=== PATIENT | male | born 1980 | race African-American/Black ===

== ENCOUNTER 2020-02-03 15:41 | Emergency (ER) | payer OTHER ==
[~2020-02-03] VITALS: Ht 185.4 cm; Wt 81.6 kg
[2020-02-03] MEDS ORDERED: CEFTRIAXONE SODIUM 250 MG/VIAL IM ONE (16:00)
[2020-02-03] MEDS ORDERED: AZITHROMYCIN 500 MG TABLET PO ONE (16:00)
[2020-02-03] MEDS ORDERED: DOXYCYCLINE HYCLATE 100MG CAPSULE PO ONE (16:30)
[2020-02-03 16:55] VITALS: BP 112/78
[2020-02-06 04:11] LABS: HIV SCREEN 4G Non Reactive (Non Reactive)
[2020-02-07 04:07] LABS: NEISSERIA GONORRHOEAE NAA Negative (Negative)
== END 2020-02-03 16:55 | disposition home or self-care (01) ==
LOC: ER 15:41
DX: Z20.2 Contact with and (suspected) exposure to infections with a predominantly sexual mode of transmission (principal)
CPT/HCPCS: 87389; 87491; 87591; 96372; 99283; J0696

== ENCOUNTER 2020-02-10 19:13 | Emergency (ER) | payer OTHER ==
[~2020-02-10] VITALS: Ht 185.4 cm; Wt 78.2 kg
[2020-02-10 19:36] VITALS: BP 108/74
== END 2020-02-10 19:59 | disposition home or self-care (01) ==
LOC: ER 19:13
DX: Z09 Encounter for follow-up examination after completed treatment for conditions other than malignant neoplasm (principal)
CPT/HCPCS: 99281